=== PATIENT | female | born 1950 | race Hispanic/Latino ===

== ENCOUNTER 2020-02-22 21:02 | Emergency (ER) | payer MEDICARE ==
[~2020-02-22] VITALS: Ht 157.5 cm; Wt 49.9 kg
--- NOTE | 2020-02-22 21:52 | Emergency Department Note ---
History of Present Illnes History of Present Illness Chief Complaint: COVID PUI History of Present Illness This is a 69 year old female PRESENTS TO THE ER C/O MIDSTERNAL CHEST PRESSURE WITH SOB, COUGH, MUSCLE ACHES, FEVER/CHILLS, HEADACHE AND DIARRHEA ONSET X1 MONTH AGO; PT STATES "WHEN I LAY DOWN, I FEEL LIKE SOMETHING IS SITTING ON MY CHEST"; PT TESTED + FOR COVID-19 ON 01/23/20; PT PRESCRIBED Z-PACK TODAY BY PCP; SPO2 98% RA; SKIN WARM, DRY AND COLOR WNL FOR PT; RESP EVEN/UNLABORED; . Historian: Patient Arrival Mode: Car Onset (how long ago): day(s) (1) Location: chest Quality: pain with cough and inspiration Radiation: Reports non-radiation Severity: mild Onset quality: gradual Duration (how long): day(s) (1) Timing of current episode: constant Progression: unchanged Chronicity: new Context: Reports recent illness (pt has covid 19) Relieving factors: none Exacerbating factors: other (coughing, inspiration) Associated symptoms: Reports chest pain, Reports cough (dry), Reports fever/chills, Reports shortness of breath Treatments prior to arrival: other (on zpak started today by pcp) Past Medical/Family History Physician Review I have reviewed the patient's past medical and family history. Any updates have been documented here. Past Medical History Recent Fever: Yes (SUBJECTIVE FEVER) Clinical Suspicion of Infectio: No New/Unexplained Change in Ment: No Past Medical History: Diabetes, Hyperlipedemia Past Surgical History: Hysterectomy Other Surgery: BLADDER SLING Social History Smoking Cessation: Never Smoker Alcohol Use: None Any Illegal Drug Use: No Physically hurt or threatened: No Family History Family history of heart diseas: No Other family history htn,dm Other Any Pre-Existing Lines (PICC,: No Review of Systems Review of Systems Constitutional: Reports as per HPI EENTM: Reports no symptoms Cardiovascular: Reports as per HPI Respiratory: Reports as per HPI Gastrointestinal: Reports no symptoms Genitourinary: Reports no symptoms Musculoskeletal: Reports no symptoms Integumentary: Reports no symptoms Neurological: Reports no symptoms Psychological: Reports no symptoms Endocrine: Reports no symptoms Hematological/Lymphatic: Reports no symptoms Physical Exam Related Data Allergies: Coded Allergies: Sulfa (Sulfonamide Antibiotics) (Verified Allergy, Intermediate, 02/22/20) Triage Vital Signs Vital Signs Date Time Temp Pulse Resp B/P (MAP) Pulse Ox O2 Delivery O2 Flow Rate FiO2 02/22/20 21:05 98.2 104 20 146/79 99 Room Air Vital signs reviewed: Yes Physical Exam CONSTITUTIONAL Constitutional: Present well-developed, Present well-nourished HENT HENT: Present normocephalic, Present atraumatic, Present oropharynx clear/moist, Present nose normal HENT L/R: Present left ext ear normal, Present right ext ear normal EYES Eyes: Reports PERRL, Reports conjunctivae normal NECK Neck: Present ROM normal PULMONARY Pulmonary: Present effort normal, Present breath sounds normal, Present chest tenderness (to sternum with palpation) CARDIOVASCULAR Cardiovascular: Present regular rhythm, Present heart sounds normal, Present capillary refill normal, Present tachycardia (104) GASTROINTESTINAL Abdominal: Present soft, Present nontender, Present bowel sounds normal GENITOURINARY Genitourinary: Present exam deferred SKIN Skin: Present warm, Present dry MUSCULOSKELETAL Musculoskeletal: Present ROM normal NEUROLOGICAL Neurological: Present alert, Present oriented x 3, Present no gross motor or sensory deficits PSYCHOLOGICAL Psychological: Present mood/affect normal, Present judgement normal Results Laboratory Laboratory Laboratory Tests Test 02/22/20 21:56 White Blood Count 9.00 x10e3/uL (4.8-10.8) Red Blood Count 4.37 x10e6/uL (3.6-5.1) Hemoglobin 12.9 g/dL (12.0-16.0) Hematocrit 40.0 % (34.2-44.1) Mean Corpuscular Volume 91.5 fL (81-99) Mean Corpuscular Hemoglobin 29.5 pg (28-32) Mean Corpuscular Hemoglobin Concent 32.3 g/dL (31-35) Red Cell Distribution Width 13.7 % (11.7-14.4) Platelet Count 241 x10e3/uL (140-360) Neutrophils (%) (Auto) 57.3 % (38.7-80.0) Lymphocytes (%) (Auto) 27.1 % (18.0-39.1) Monocytes (%) (Auto) 9.6 % (4.4-11.3) Eosinophils (%) (Auto) 5.2 % (0.0-6.0) Basophils (%) (Auto) 0.4 % (0.0-1.0) Neutrophils # (Auto) 5.2 (2.1-6.9) Lymphocytes # (Auto) 2.4 (1.0-3.2) Monocytes # (Auto) 0.9 (0.2-0.8) Eosinophils # (Auto) 0.5 (0.0-0.4) Basophils # (Auto) 0.0 (0.0-0.1) Absolute Immature Granulocyte (auto 0.04 x10e3/uL (0-0.1) Sodium Level 137 mmol/L (136-145) Potassium Level 4.3 mmol/L (3.5-5.1) Chloride Level 100 mmol/L (98-107) Carbon Dioxide Level 27 mmol/L (22-29) Anion Gap 14.3 mmol/L (8-16) Blood Urea Nitrogen 10 mg/dL (7-26) Creatinine 0.62 mg/dL (0.57-1.11) Estimat Glomerular Filtration Rate > 60 ML/MIN (60-) BUN/Creatinine Ratio 16 (6-25) Glucose Level 161 mg/dL (74-118) Calcium Level 9.1 mg/dL (8.4-10.2) Creatine Kinase 28 IU/L (29-168) Creatine Kinase MB 0.70 ng/mL (0-5.0) Troponin I < 0.001 ng/mL (0-0.300) Lab results reviewed: Yes Imaging Imaging results reviewed: Yes Impressions Procedure: [id number] DX/CHEST SINGLE (PORTABLE) Exam Date: 02/22/20 Exam Time: 2241 REPORT STATUS: Signed Examination: Single AP view of the chest. COMPARISON: None. INDICATION: Shortness of breath, cough and fever IMPRESSION: 1. Lines and Tubes: None 2. Lungs are grossly clear. No consolidation or effusion. 3. Cardiomediastinal silhouette is normal. Pulmonary vasculature is normal. 4. No acute bony abnormalities. Signed by: Dr. Tristen Kramer M.D. on 02/22/2020 11:28 PM Procedures 12 Lead ECG Interpretation ECG Interpretation : ECG: ECG 1 Cheese Processor: Interpreted by ED physician Date: Feb 22, 2020 Time: 21:19 Rhythm: sinus rhythm Rate: normal BPM: 99 QRS axis: normal ST segments normal: Yes T waves normal: No T wave inversion: V1 Other findings: no other findings Clinical Impression: non-specific ECG Assessment & Plan Medical Decision Making MDM pt with covid 19 with chest pain associated with coughing and inspiration for 1 day cbc, bmp, ekg, cardiac enzymes, cxr ordered to eval for myocardial infarction, viral pneumonia, electrolyte abnormality Assessment & Plan Final Impression: (1) Chest wall pain (2) COVID-19 Depart Disposition: HOME, SELF-CARE Last Vital Signs Date Time Temp Pulse Resp B/P (MAP) Pulse Ox O2 Delivery O2 Flow Rate FiO2 02/22/20 21:05 98.2 104 20 146/79 99 Room Air SHELLEY APODACA MD Feb 22, 2020 21:52
[2020-02-22 22:07] LABS: BASOPHILS % 0.4 % (0.0-1.0); EOSINOPHILS # (AUTO) 0.5 (0.0-0.4); EOSINOPHILS % 5.2 % (0.0-6.0); HEMOGLOBIN 12.9 g/dL (12.0-16.0); LYMPHOCYTES # (AUTO) 2.4 (1.0-3.2); LYMPHOCYTES % 27.1 % (18.0-39.1); MEAN CORPUSCULAR HEMOGLOBIN 29.5 pg (28-32); MEAN CORPUSCULAR HGB CONC 32.3 g/dL (31-35); MEAN CORPUSCULAR VOLUME 91.5 fL (81-99); MONOCYTES # (AUTO) 0.9 (0.2-0.8); MONOCYTES % 9.6 % (4.4-11.3); NEUTROPHILS # (AUTO) 5.2 (2.1-6.9); NEUTROPHILS % 57.3 % (38.7-80.0); PLATELET COUNT 241 x10e3/uL (140-360); RED BLOOD COUNT 4.37 x10e6/uL (3.6-5.1); RED CELL DISTRIBUTION WIDTH 13.7 % (11.7-14.4)
[2020-02-22 22:23] LABS: ANION GAP 14.3 mmol/L (8-16); BLOOD UREA NITROGEN 10 mg/dL (7-26); BUN/CREATININE RATIO 16 (6-25); CALCIUM 9.1 mg/dL (8.4-10.2); CARBON DIOXIDE 27 mmol/L (22-29); CHLORIDE 100 mmol/L (98-107); CREATINE KINASE 28 IU/L (29-168); CREATININE, SERUM 0.62 mg/dL (0.57-1.11); EST GLOMERULAR FILTRATION RATE > 60 ML/MIN (60-); GLUCOSE 161 mg/dL (74-118); POTASSIUM 4.3 mmol/L (3.5-5.1); SODIUM 137 mmol/L (136-145)
--- NOTE | 2020-02-22 23:31 | Diagnostic Imaging Report ---
Examination: Single AP view of the chest. COMPARISON: None. INDICATION: Shortness of breath, cough and fever IMPRESSION: 1. Lines and Tubes: None 2. Lungs are grossly clear. No consolidation or effusion. 3. Cardiomediastinal silhouette is normal. Pulmonary vasculature is normal. 4. No acute bony abnormalities. Signed by: Dr. Tristen Kramer M.D. on 02/22/2020 11:28 PM
== END 2020-02-22 23:43 | disposition home or self-care (01) ==
LOC: ER 21:23
DX: U07.1 COVID-19 (principal); R07.89 Other chest pain; R06.02 Shortness of breath; R05 Cough; E11.65 Type 2 diabetes mellitus with hyperglycemia; E78.5 Hyperlipidemia, unspecified
CPT/HCPCS: 36415; 71045; 80048; 82550; 82553; 84484; 85025; 93005; 99283

== ENCOUNTER 2020-05-10 14:50 | Emergency (ER) | payer MEDICARE ==
[~2020-05-10] VITALS: Ht 157.5 cm; Wt 51.1 kg
[2020-05-10] MEDS ORDERED: IBUPROFEN 600 MG TAB PO ONE (15:15)
[2020-05-10] MEDS ORDERED: CEFTRIAXONE SOD 1 GM VIAL IM ONE (15:15)
[2020-05-10] MEDS ORDERED: ACETAMINOPHEN 325 MG TAB PO ONE (15:15)
[2020-05-10] MEDS ORDERED: ONDANSETRON HCL 4 MG ORAL DISINTEGRATING TAB PO ONE (15:15)
[2020-05-10] MEDS ORDERED: ZOFRAN4 MG SL (15:22)
[2020-05-10] MEDS ORDERED: IBUPROFEN IB200 MG PO (15:22)
[2020-05-10] MEDS ORDERED: CEFDINIR300 MG PO (15:22)
[2020-05-10] MEDS ORDERED: DIFLUCAN100 MG PO (15:22)
[2020-05-10] MEDS ORDERED: IBUPROFEN 600 MG TAB ONE (15:23)
== END 2020-05-10 15:50 | disposition home or self-care (01) ==
LOC: FSED 15:00
DX: N39.0 Urinary tract infection, site not specified (principal); R30.0 Dysuria; E11.9 Type 2 diabetes mellitus without complications; E78.5 Hyperlipidemia, unspecified; F17.210 Nicotine dependence, cigarettes, uncomplicated
CPT/HCPCS: 81003; 99283; J0696; Q0162

== ENCOUNTER 2020-07-18 09:15 | Emergency (ER) | payer MEDICARE ==
[~2020-07-18] VITALS: Ht 157.5 cm; Wt 52.3 kg
[~2020-07-18 09:15] MED LIST: CEFDINIR300 MG PO; DIFLUCAN100 MG PO; IBUPROFEN IB200 MG PO; ZOFRAN4 MG SL
[2020-07-18] MEDS ORDERED: KETOROLAC TROMETHAMINE 60 MG/2 ML VIAL IM ONE (10:00)
[2020-07-18] MEDS ORDERED: CYCLOBENZAPRINE10 MG PO (10:22)
[2020-07-18] MEDS ORDERED: IBUPROFEN400 MG PO (10:24)
== END 2020-07-18 10:43 | disposition home or self-care (01) ==
LOC: FSED 09:57
DX: S29.012A Strain of muscle and tendon of back wall of thorax, initial encounter (principal); M25.551 Pain in right hip; X50.1XXA Overexertion from prolonged static or awkward postures, initial encounter; Y99.0 Civilian activity done for income or pay; E11.9 Type 2 diabetes mellitus without complications
CPT/HCPCS: 99282; J1885

== ENCOUNTER 2020-10-02 16:41 | Emergency (ER) | payer MEDICARE ==
[~2020-10-02] VITALS: Ht 157.5 cm; Wt 52.7 kg
[~2020-10-02 16:41] MED LIST changes: +CYCLOBENZAPRINE10 MG PO; +IBUPROFEN400 MG PO
[2020-10-02] MEDS ORDERED: CEFTRIAXONE SOD 1 GM VIAL IM ONE (17:15)
[2020-10-02] MEDS ORDERED: KETOROLAC TROMETHAMINE 60 MG/2 ML VIAL IM ONE (17:15)
[2020-10-02] MEDS ORDERED: KETOROLAC TROME10 MG PO (17:21)
[2020-10-02] MEDS ORDERED: CIPRO500 MG PO (17:21)
[2020-10-02] MEDS ORDERED: KETOROLAC TROMETHAMINE 60 MG/2 ML VIAL ONE (17:22)
[2020-10-02] MEDS ORDERED: CEFTRIAXONE SOD 1 GM VIAL ONE (17:23)
[2020-10-02] MEDS ORDERED: LIDOCAINE HCL 1% LOCAL INJ 20 ML VIAL ONE (17:23)
[2020-10-02] MEDS ORDERED: PYRIDIUM200 MG PO (17:32)
[2020-10-02 17:58] VITALS: BP 113/78
== END 2020-10-02 18:01 | disposition home or self-care (01) ==
LOC: FSED 16:50
DX: R30.0 Dysuria (principal); M54.5 Low back pain; N12 Tubulo-interstitial nephritis, not specified as acute or chronic; E11.9 Type 2 diabetes mellitus without complications
CPT/HCPCS: 81003; 87086; 87186; 96372; 99283; J0696; J1885; J2001

== ENCOUNTER 2020-10-22 17:40 | Emergency (ER) | payer MEDICARE ==
[~2020-10-22] VITALS: Ht 157.5 cm; Wt 52.6 kg
[~2020-10-22 17:40] MED LIST changes: +CIPRO500 MG PO; +KETOROLAC TROME10 MG PO; +PYRIDIUM200 MG PO
[2020-10-22] MEDS ORDERED: SODIUM CHLORIDE 0.9% 1000ML 1,000 ML IV STA (17:57)
[2020-10-22] MEDS ORDERED: ONDANSETRON HCL INJ 2MG/ML 2ML 2 MG/ML VIAL IV ONE (18:00)
[2020-10-22] MEDS ORDERED: KETOROLAC TROMETHAMINE 30 MG/ML VIAL IV ONE (18:00)
[2020-10-22] MEDS ORDERED: CEFTRIAXONE SOD 1 GM VIAL IV ONE ×2 (18:00→18:30)
[2020-10-22] MEDS ORDERED: CEFDINIR300 MG PO (18:10)
[2020-10-22] MEDS ORDERED: ULTRACET TABLE1 EACH PO (18:10)
[2020-10-22] MEDS ORDERED: ZOFRAN4 MG PO (18:10)
[2020-10-22] MEDS ORDERED: SODIUM CHLORIDE 0.9% 1000ML 1,000 ML ONE (18:16)
[2020-10-22] MEDS ORDERED: CEFTRIAXONE SOD 1 GM VIAL ONE (18:17)
[2020-10-22] MEDS ORDERED: CEFTRIAXONE SOD 1 GM in SODIUM CHLORIDE 0.9% 50ML 50 ML IV ONE (18:30)
== END 2020-10-22 19:15 | disposition home or self-care (01) ==
LOC: FSED 17:50
DX: N30.91 Cystitis, unspecified with hematuria (principal); E11.65 Type 2 diabetes mellitus with hyperglycemia; R30.0 Dysuria; E86.0 Dehydration
CPT/HCPCS: 80048; 81003; 85025; 87086; 99283; J0696; J1885; J2405; J7030

== ENCOUNTER → 2021-01-29 | Outpatient (CLI) | payer OTHER ==
[~2021-01-29] MED LIST changes: +ULTRACET TABLE1 EACH PO; +ZOFRAN4 MG PO
== END ==
LOC: CT 15:09
PROVIDERS: ATTEND Internal Medicine
DX: N20.0 Calculus of kidney (principal)
CPT/HCPCS: 74176

== ENCOUNTER → 2021-04-17 | Day surgery (SDC) | payer MEDICARE, OTHER ==
[2021-04-16 08:02] LABS: BASOPHILS % 0.3 % (0.0-1.0); EOSINOPHILS # (AUTO) 0.3 (0.0-0.4); EOSINOPHILS % 3.3 % (0.0-6.0); HEMATOCRIT 40.2 % (34.2-44.1); HEMOGLOBIN 12.9 g/dL (12.0-16.0); LYMPHOCYTES # (AUTO) 2.2 (1.0-3.2); LYMPHOCYTES % 28.4 % (18.0-39.1); MEAN CORPUSCULAR HEMOGLOBIN 31.1 pg (28-32); MEAN CORPUSCULAR HGB CONC 32.1 g/dL (31-35); MEAN CORPUSCULAR VOLUME 96.9 fL (81-99); MONOCYTES # (AUTO) 0.6 (0.2-0.8); MONOCYTES % 7.5 % (4.4-11.3); NEUTROPHILS # (AUTO) 4.6 (2.1-6.9); NEUTROPHILS % 60.1 % (38.7-80.0); PLATELET COUNT 242 x10e3/uL (140-360); RED BLOOD COUNT 4.15 x10e6/uL (3.6-5.1)
[2021-04-16 08:18] LABS: ANION GAP 17.2 mmol/L (8-16); CALCIUM 9.2 mg/dL (8.4-10.2); CREATININE, SERUM 0.64 mg/dL (0.57-1.11); POTASSIUM 4.2 mmol/L (3.5-5.1)
[~2021-04-17] MED LIST changes: +ALENDRONATE SOD70 MG PO; +CEFTRIAXONE 1 GM VIAL ONE; +IOPAMIDOL 300MG/ML 50ML INFUS..BTL IV ONE; +LEVOFLOXACIN250 MG PO; +LIDOCAINE HCL 2% LOCAL INJ 5 ML SDV VIAL INJ ONE; +LIPITOR10 MG PO; +METFORMIN HCL500 MG PO; +METOCLOPRAMIDE HCL 10 MG/2ML VIAL ONE; +ONDANSETRON HCL INJ 2MG/ML 2ML 2 MG/ML VIAL ONE; +POVIDONE IODINE 0.05% 0.05 % ML PO ONE; +PROPOFOL IV EMULSION 10 MG/ML 20 ML VIAL ONE; +SODIUM CHLORIDE 0.9% 50ML 50 ML ONE; +ZESTRIL10 MG PO
[2021-04-17 09:13] VITALS: BP 133/64
== END | disposition home or self-care (01) ==
LOC: OR 05:54
PROVIDERS: ATTEND Urology
DX: N39.0 Urinary tract infection, site not specified (principal); N81.10 Cystocele, unspecified; N95.2 Postmenopausal atrophic vaginitis; I10 Essential (primary) hypertension; E11.9 Type 2 diabetes mellitus without complications; Z88.2 Allergy status to sulfonamides; Z01.810 Encounter for preprocedural cardiovascular examination; Z01.812 Encounter for preprocedural laboratory examination; Z01.818 Encounter for other preprocedural examination; Z20.822 Contact with and (suspected) exposure to COVID-19; Z79.84 Long term (current) use of oral hypoglycemic drugs
CPT/HCPCS: 36415; 71046; 74420; 80048; 82948; 85025; 93005; C1758; J0696; J2001; J2405; J2765; U0002

== ENCOUNTER 2021-06-12 15:11 | Emergency (ER) | payer MEDICARE, OTHER ==
[~2021-06-12] VITALS: Ht 157.5 cm; Wt 52.2 kg
[~2021-06-12 15:11] MED LIST changes: -CEFTRIAXONE 1 GM VIAL ONE; -IOPAMIDOL 300MG/ML 50ML INFUS..BTL IV ONE; -LIDOCAINE HCL 2% LOCAL INJ 5 ML SDV VIAL INJ ONE; -METOCLOPRAMIDE HCL 10 MG/2ML VIAL ONE; -ONDANSETRON HCL INJ 2MG/ML 2ML 2 MG/ML VIAL ONE; -POVIDONE IODINE 0.05% 0.05 % ML PO ONE; -PROPOFOL IV EMULSION 10 MG/ML 20 ML VIAL ONE; -SODIUM CHLORIDE 0.9% 50ML 50 ML ONE
[2021-06-12] MEDS ORDERED: ULTRAM 50MG50 MG PO (15:44)
[2021-06-12] MEDS ORDERED: FAMOTIDINE20 MG PO (15:44)
[2021-06-12] MEDS ORDERED: CEFDINIR300 MG PO (15:44)
[2021-06-12] MEDS ORDERED: ONDANSETRON ODT4 MG PO (15:44)
[2021-06-12] MEDS ORDERED: ONDANSETRON HCL 4 MG ORAL DISINTEGRATING TAB PO ONE (15:45)
[2021-06-12] MEDS ORDERED: CEFTRIAXONE 1 GM VIAL IM ONE (15:45)
[2021-06-12] MEDS ORDERED: PREDNISONE 20 MG TAB PO ONE (15:45)
[2021-06-12] MEDS ORDERED: ACETAMINOPHEN 325 MG TAB ONE (15:51)
== END 2021-06-12 16:12 | disposition home or self-care (01) ==
LOC: FSED 15:36
DX: R11.0 Nausea (principal); K52.9 Noninfective gastroenteritis and colitis, unspecified; B34.9 Viral infection, unspecified; E11.65 Type 2 diabetes mellitus with hyperglycemia; R10.30 Lower abdominal pain, unspecified; R05.9 Cough, unspecified
CPT/HCPCS: 36415; 82948; 99283; J0696; J7512; Q0162

== ENCOUNTER 2021-07-30 18:02 | Emergency (ER) | payer MEDICARE, OTHER ==
[~2021-07-30] VITALS: Ht 157.5 cm; Wt 55.0 kg
[~2021-07-30 18:02] MED LIST changes: +FAMOTIDINE20 MG PO; +ONDANSETRON ODT4 MG PO; +ULTRAM 50MG50 MG PO
[2021-07-30] MEDS ORDERED: CEFDINIR300 MG PO (18:36)
[2021-07-30] MEDS ORDERED: PYRIDIUM100 MG PO (18:36)
[2021-07-30] MEDS ORDERED: CEFTRIAXONE 1 GM VIAL IM ONE (18:45)
[2021-07-30] MEDS ORDERED: CEFTRIAXONE 1 GM VIAL ONE (18:52)
== END 2021-07-30 18:50 | disposition home or self-care (01) ==
LOC: FSED 18:23
DX: N30.00 Acute cystitis without hematuria (principal); I10 Essential (primary) hypertension; E11.9 Type 2 diabetes mellitus without complications; E78.5 Hyperlipidemia, unspecified; Z79.84 Long term (current) use of oral hypoglycemic drugs
CPT/HCPCS: 81003; 96372; 99283; J0696

== ENCOUNTER 2021-09-08 16:52 | Emergency (ER) | payer MEDICARE, OTHER ==
[~2021-09-08] VITALS: Ht 157.5 cm; Wt 52.6 kg
[~2021-09-08 16:52] MED LIST changes: +PYRIDIUM100 MG PO
[2021-09-08] MEDS ORDERED: CEFUROXIME250 MG PO (18:09)
[2021-09-08] MEDS ORDERED: KETOROLAC TROMETHAMINE 60 MG/2 ML VIAL IM ONE (18:15)
== END 2021-09-08 18:35 | disposition home or self-care (01) ==
LOC: FSED 18:03
DX: R33.9 Retention of urine, unspecified (principal); N39.0 Urinary tract infection, site not specified; R30.0 Dysuria; I10 Essential (primary) hypertension; E11.9 Type 2 diabetes mellitus without complications; E78.5 Hyperlipidemia, unspecified
CPT/HCPCS: 81003; 96372; 99282; J1885

== ENCOUNTER 2021-09-29 08:35 | Inpatient (IN) | payer MEDICARE, OTHER ==
[~2021-09-29] VITALS: Ht 157.5 cm; Wt 55.0 kg
[~2021-09-29 08:35] MED LIST changes: +CEFUROXIME250 MG PO
[2021-09-29] MEDS ORDERED: SODIUM CHLORIDE 0.9% 1000ML 1,000 ML IV SCH ×2 (09:15→12:45)
[2021-09-29] MEDS ORDERED: MEROPENEM 1 GM in SODIUM CHLORIDE 0.9% 100 ML IV ONE (09:30)
[2021-09-29 09:33] LABS: BASOPHILS % 0.2 % (0.0-1.0); EOSINOPHILS # (AUTO) 0.2 (0.0-0.4); EOSINOPHILS % 1.7 % (0.0-6.0); HEMATOCRIT 39.9 % (34.2-44.1); HEMOGLOBIN 13.1 g/dL (12.0-16.0); LYMPHOCYTES # (AUTO) 2.8 (1.0-3.2); LYMPHOCYTES % 22.9 % (18.0-39.1); MEAN CORPUSCULAR HEMOGLOBIN 30.3 pg (28-32); MEAN CORPUSCULAR HGB CONC 32.8 g/dL (31-35); MEAN CORPUSCULAR VOLUME 92.1 fL (81-99); MONOCYTES # (AUTO) 0.9 (0.2-0.8); MONOCYTES % 7.5 % (4.4-11.3); NEUTROPHILS # (AUTO) 8.1 (2.1-6.9); NEUTROPHILS % 67.1 % (38.7-80.0); PLATELET COUNT 310 x10e3/uL (140-360); RED BLOOD COUNT 4.33 x10e6/uL (3.6-5.1); RED CELL DISTRIBUTION WIDTH 12.8 % (11.7-14.4)
[2021-09-29] MEDS ORDERED: ONDANSETRON HCL INJ 2MG/ML 2ML 2 MG/ML VIAL IV NR (09:45)
[2021-09-29] MEDS ORDERED: Morphine 4mg Syringe 4 MG/ML INJ IV ONE (09:45)
[2021-09-29 09:50] LABS: INR 0.98; PROTHROMBIN TIME 13.7 seconds (11.9-14.5)
[2021-09-29 09:51] LABS: ALBUMIN/GLOBULIN RATIO 1.1 (0.8-2.0); ANION GAP 14.2 mmol/L (8-16); CALCIUM 9.4 mg/dL (8.4-10.2); CREATININE, SERUM 0.67 mg/dL (0.57-1.11); PARTIAL THROMBOPLASTIN TIME 38.4 seconds (23.8-35.5); POTASSIUM 4.2 mmol/L (3.5-5.1)
[2021-09-29 10:54] LABS: CLARITY,URINE CLOUDY (CLEAR); COLOR,URINE YELLOW (YELLOW)
[2021-09-29 10:55] LABS: KETONES,URINE NEGATIVE (NEGATIVE); LEUKOCYTE ESTERASE ,URINE LARGE (NEGATIVE); NITRITE,URINE POSITIVE (NEGATIVE); PROTEIN,URINE DIPSTICK TRACE (NEGATIVE); URINE UROBILINOGEN 0.2 mg/dL (0.2 - 1)
[2021-09-29 11:17] LABS: WBC,URINE (MAN) >50 /HPF (0-5)
[2021-09-29 11:18] LABS: BACTERIA,URINE MANY /HPF
[2021-09-29 11:22] LABS: EPITHELIAL CELLS,URINE MODERATE /LPF
[2021-09-29] MEDS: METRONIDAZOLE 500MG/NS 100ML IV SCH ×3 (12:45→21:37)
[2021-09-29] MEDS ORDERED: Morphine 4mg Syringe 4 MG/ML INJ IV PRN (12:45)
[2021-09-29] MEDS ORDERED: MEROPENEM 1 GM in SODIUM CHLORIDE 0.9% 100 ML IV SCH (14:00)
[2021-09-29 14:25] VITALS: BP 122/75
[2021-09-29] MEDS: MEROPENEM 1 GM in SODIUM CHLORIDE 0.9% 100 ML IV SCH (17:08)
[2021-09-29] MEDS ORDERED: FLONASE ALLERG9.9 ML INH (17:58)
[2021-09-29] MEDS ORDERED: VITAMIN D350 MCG PO (17:58)
[2021-09-29] MEDS: HYDROMORPHONE 1MG/1ML INJ IV PRN (18:38)
[2021-09-29 20:36] VITALS: BP 142/65
[2021-09-29 20:37] VITALS: BP 142/65
[2021-09-29] MEDS: ATORVASTATIN 40 MG TAB PO SCH (21:00)
[2021-09-29] MEDS: LISINOPRIL 2.5 MG TAB PO SCH (21:00)
[2021-09-30] VITALS (8 sets, daily range): BP systolic 94–150; BP diastolic 60–68
[2021-09-30] MEDS: MEROPENEM 1 GM in SODIUM CHLORIDE 0.9% 100 ML IV SCH ×3 (02:00→17:24)
[2021-09-30 05:30] LABS: BASOPHILS % 0.3 % (0.0-1.0); EOSINOPHILS # (AUTO) 0.3 (0.0-0.4); EOSINOPHILS % 4.7 % (0.0-6.0); HEMOGLOBIN 10.4 g/dL (12.0-16.0); LYMPHOCYTES # (AUTO) 1.7 (1.0-3.2); LYMPHOCYTES % 28.4 % (18.0-39.1); MEAN CORPUSCULAR HEMOGLOBIN 30.6 pg (28-32); MEAN CORPUSCULAR HGB CONC 31.5 g/dL (31-35); MEAN CORPUSCULAR VOLUME 97.1 fL (81-99); MONOCYTES # (AUTO) 0.7 (0.2-0.8); MONOCYTES % 10.6 % (4.4-11.3); NEUTROPHILS # (AUTO) 3.4 (2.1-6.9); NEUTROPHILS % 55.7 % (38.7-80.0); PLATELET COUNT 220 x10e3/uL (140-360); RED CELL DISTRIBUTION WIDTH 13.2 % (11.7-14.4)
[2021-09-30] MEDS: METRONIDAZOLE 500MG/NS 100ML IV SCH ×3 (06:00→22:00)
[2021-09-30] MEDS: ONDANSETRON HCL INJ 2MG/ML 2ML 2 MG/ML VIAL IV PRN ×2 (07:15→14:45)
[2021-09-30] MEDS: HYDROMORPHONE 1MG/1ML INJ IV PRN ×2 (07:15→14:45)
[2021-09-30] MEDS: METFORMIN HCL 500 MG TAB PO SCH ×2 (09:40→17:24)
[2021-09-30 10:23] LABS: ALBUMIN 3.3 g/dL (3.5-5.0); ALBUMIN/GLOBULIN RATIO 1.1 (0.8-2.0); ANION GAP 11.7 mmol/L (8-16); CALCIUM 7.9 mg/dL (8.4-10.2); CREATININE, SERUM 0.7 mg/dL (0.57-1.11); POTASSIUM 3.7 mmol/L (3.5-5.1)
[2021-09-30] MEDS ORDERED: DEXTROSE 50% SYRINGE 50 ML IV PRN (14:00)
[2021-09-30] MEDS: INSULIN LISPRO 100 UNIT/1 ML 3ML VIAL SQ SCH ×2 (16:30→21:00)
[2021-09-30] MEDS: ATORVASTATIN 40 MG TAB PO SCH (20:49)
[2021-09-30] MEDS: LISINOPRIL 2.5 MG TAB PO SCH (21:00)
[2021-10-01] VITALS (7 sets, daily range): BP systolic 91–123; BP diastolic 52–81
[2021-10-01] MEDS: MEROPENEM 1 GM in SODIUM CHLORIDE 0.9% 100 ML IV SCH ×3 (02:00→17:13)
[2021-10-01] MEDS: METRONIDAZOLE 500MG/NS 100ML IV SCH ×3 (06:00→22:08)
[2021-10-01 06:11] LABS: BASOPHILS % 0.3 % (0.0-1.0); EOSINOPHILS # (AUTO) 0.4 (0.0-0.4); EOSINOPHILS % 3.8 % (0.0-6.0); HEMATOCRIT 33.6 % (34.2-44.1); HEMOGLOBIN 10.6 g/dL (12.0-16.0); LYMPHOCYTES # (AUTO) 2.2 (1.0-3.2); MEAN CORPUSCULAR HEMOGLOBIN 30.5 pg (28-32); MEAN CORPUSCULAR HGB CONC 31.5 g/dL (31-35); MEAN CORPUSCULAR VOLUME 96.6 fL (81-99); MONOCYTES # (AUTO) 0.9 (0.2-0.8); MONOCYTES % 9.5 % (4.4-11.3); NEUTROPHILS # (AUTO) 5.7 (2.1-6.9); NEUTROPHILS % 62.1 % (38.7-80.0); PLATELET COUNT 214 x10e3/uL (140-360); RED BLOOD COUNT 3.48 x10e6/uL (3.6-5.1)
[2021-10-01 06:40] LABS: ALBUMIN 3.2 g/dL (3.5-5.0); ALBUMIN/GLOBULIN RATIO 1.1 (0.8-2.0); ANION GAP 11.9 mmol/L (8-16); CALCIUM 8.3 mg/dL (8.4-10.2); CREATININE, SERUM 0.6 mg/dL (0.57-1.11); POTASSIUM 3.9 mmol/L (3.5-5.1)
[2021-10-01] MEDS: INSULIN LISPRO 100 UNIT/1 ML 3ML VIAL SQ SCH ×4 (07:30→21:21)
[2021-10-01] MEDS: METFORMIN HCL 500 MG TAB PO SCH ×2 (09:13→16:10)
[2021-10-01] MEDS: HYDROMORPHONE 1MG/1ML INJ IV PRN ×3 (12:19→22:50)
[2021-10-01] MEDS: LISINOPRIL 2.5 MG TAB PO SCH (21:24)
[2021-10-01] MEDS: ATORVASTATIN 40 MG TAB PO SCH (21:24)
[2021-10-02] VITALS: BP 115/85
[2021-10-02] MEDS: MEROPENEM 1 GM in SODIUM CHLORIDE 0.9% 100 ML IV SCH ×3 (02:29→17:22)
[2021-10-02 04:00] VITALS: BP 121/63
[2021-10-02] MEDS: HYDROMORPHONE 1MG/1ML INJ IV PRN (05:35)
[2021-10-02 05:59] LABS: BASOPHILS % 0.2 % (0.0-1.0); EOSINOPHILS # (AUTO) 0.3 (0.0-0.4); HEMATOCRIT 36.2 % (34.2-44.1); HEMOGLOBIN 11.6 g/dL (12.0-16.0); LYMPHOCYTES # (AUTO) 2.3 (1.0-3.2); LYMPHOCYTES % 21.7 % (18.0-39.1); MEAN CORPUSCULAR HEMOGLOBIN 30.1 pg (28-32); MEAN CORPUSCULAR VOLUME 93.8 fL (81-99); MONOCYTES # (AUTO) 0.9 (0.2-0.8); MONOCYTES % 9.1 % (4.4-11.3); NEUTROPHILS # (AUTO) 6.8 (2.1-6.9); NEUTROPHILS % 65.6 % (38.7-80.0); PLATELET COUNT 240 x10e3/uL (140-360); RED BLOOD COUNT 3.86 x10e6/uL (3.6-5.1); RED CELL DISTRIBUTION WIDTH 12.6 % (11.7-14.4)
[2021-10-02] MEDS: METRONIDAZOLE 500MG/NS 100ML IV SCH (06:12)
[2021-10-02 06:26] LABS: ALBUMIN 3.6 g/dL (3.5-5.0); ALBUMIN/GLOBULIN RATIO 1.1 (0.8-2.0); ANION GAP 12.8 mmol/L (8-16); CALCIUM 8.6 mg/dL (8.4-10.2); CREATININE, SERUM 0.58 mg/dL (0.57-1.11); POTASSIUM 3.8 mmol/L (3.5-5.1)
[2021-10-02] MEDS: INSULIN LISPRO 100 UNIT/1 ML 3ML VIAL SQ SCH ×3 (07:30→16:45)
[2021-10-02 08:00] VITALS: BP 139/70
[2021-10-02] MEDS ORDERED: ONDANSETRON HCL 4 MG ORAL DISINTEGRATING TAB PO PRN (08:00)
[2021-10-02] MEDS: METFORMIN HCL 500 MG TAB PO SCH ×2 (08:23→16:43)
[2021-10-02 08:52] VITALS: BP 139/70
[2021-10-02 12:52] VITALS: BP 129/74
[2021-10-02] MEDS ORDERED: METRONIDAZOLE 500 MG TAB PO SCH (14:00)
[2021-10-02 16:46] VITALS: BP 116/59
== END 2021-10-02 18:36 | disposition home or self-care (01) | DRG 690 ==
LOC: ER 08:40 → ERHOLD 12:53 → MED/SURG 14:25 → MED/SURG2 10-01 11:40
PROVIDERS: ADMIT Internal Medicine; ATTEND Internal Medicine
PROC: 02HV33Z Insertion of Infusion Device into Superior Vena Cava, Percutaneous Approach (ICD-10-PCS; principal; 2021-09-29)
DX: N39.0 Urinary tract infection, site not specified (principal); K57.32 Diverticulitis of large intestine without perforation or abscess without bleeding; Z16.12 Extended spectrum beta lactamase (ESBL) resistance; B96.20 Unspecified Escherichia coli [E. coli] as the cause of diseases classified elsewhere; Z20.822 Contact with and (suspected) exposure to COVID-19; G47.00 Insomnia, unspecified; M81.0 Age-related osteoporosis without current pathological fracture; I13.10 Hypertensive heart and chronic kidney disease without heart failure, with stage 1 through stage 4 chronic kidney disease, or unspecified chronic kidney disease; E11.22 Type 2 diabetes mellitus with diabetic chronic kidney disease; N18.1 Chronic kidney disease, stage 1; Z79.899 Other long term (current) drug therapy; Z79.84 Long term (current) use of oral hypoglycemic drugs; E11.51 Type 2 diabetes mellitus with diabetic peripheral angiopathy without gangrene
CPT/HCPCS: 36415; 36569; 71045; 74176; 80053; 81001; 82948; 85025; 85610; 85730; 87086; 87186; 94799; 99285; J1170; J2185; J2270; J2405; J7030; J7050; U0002

== ENCOUNTER 2021-12-09 09:26 | Inpatient (IN) | payer MEDICARE, OTHER ==
[2021-12-07 11:21] LABS: BASOPHILS % 0.2 % (0.0-1.0); EOSINOPHILS # (AUTO) 0.1 (0.0-0.4); HEMATOCRIT 40.5 % (34.2-44.1); HEMOGLOBIN 13.1 g/dL (12.0-16.0); LYMPHOCYTES # (AUTO) 2.2 (1.0-3.2); LYMPHOCYTES % 26.3 % (18.0-39.1); MEAN CORPUSCULAR HEMOGLOBIN 31.1 pg (28-32); MEAN CORPUSCULAR HGB CONC 32.3 g/dL (31-35); MEAN CORPUSCULAR VOLUME 96.2 fL (81-99); MONOCYTES # (AUTO) 0.6 (0.2-0.8); MONOCYTES % 6.8 % (4.4-11.3); NEUTROPHILS # (AUTO) 5.4 (2.1-6.9); NEUTROPHILS % 65.5 % (38.7-80.0); PLATELET COUNT 168 x10e3/uL (140-360); RED BLOOD COUNT 4.21 x10e6/uL (3.6-5.1); RED CELL DISTRIBUTION WIDTH 13.2 % (11.7-14.4)
[2021-12-07 11:45] LABS: ALBUMIN 4.2 g/dL (3.5-5.0); ALBUMIN/GLOBULIN RATIO 1.1 (0.8-2.0); ANION GAP 15.7 mmol/L (8-16); CALCIUM 9.3 mg/dL (8.4-10.2); CREATININE, SERUM 0.63 mg/dL (0.57-1.11); POTASSIUM 4.7 mmol/L (3.5-5.1)
[2021-12-09] VITALS (11 sets, daily range): BP systolic 91–158; BP diastolic 51–74
[~2021-12-09] VITALS: Ht 157.5 cm; Wt 49.9 kg
[~2021-12-09 09:26] MED LIST changes: +FLONASE ALLERG9.9 ML INH; +VITAMIN D350 MCG PO
[2021-12-09] MEDS ORDERED: SUGAMMADEX SODIUM 200 MG/2 ML VIAL IV ONE (11:36)
[2021-12-09] MEDS ORDERED: MIDAZOLAM HCL 2 MG/2 ML VIAL ONE ×2 (12:35→12:38)
[2021-12-09] MEDS ORDERED: FENTANYL CITRATE/PF 100MCG/2 ML INJ ONE ×3 (12:35→14:57)
[2021-12-09] MEDS ORDERED: ACETAMINOPHEN 1000 MG/100 ML IV PRN (14:30)
[2021-12-09] MEDS ORDERED: ONDANSETRON HCL INJ 2MG/ML 2ML 2 MG/ML VIAL IV PRN (14:30)
[2021-12-09] MEDS ORDERED: Morphine 4mg Syringe 4 MG/ML INJ ONE (15:22)
[2021-12-09] MEDS: SODIUM CHLORIDE 0.9% 250ML IRRIG IR SCH ×3 (16:17→22:00)
[2021-12-09] MEDS: SODIUM CHLORIDE 0.9% 1000ML 1,000 ML IV SCH (16:21)
[2021-12-09] MEDS ORDERED: GLYCOPYRROLATE INJ 0.2 MG/ML VIAL ONE (16:22)
[2021-12-09] MEDS ORDERED: SEVOFLURANE INHAL SOLN 250 ML PEN BTL ONE (16:22)
[2021-12-09] MEDS ORDERED: ONDANSETRON HCL INJ 2MG/ML 2ML 2 MG/ML VIAL ONE (16:22)
[2021-12-09] MEDS ORDERED: LIDOCAINE HCL 2% JELLY 5 ML TUBE ONE (16:22)
[2021-12-09] MEDS ORDERED: POVIDONE IODINE 0.05% 0.05 % ML PO ONE (16:22)
[2021-12-09] MEDS ORDERED: ROCURONIUM BROMIDE 10 MG/ML 5ML VIAL IV ONE (16:22)
[2021-12-09] MEDS ORDERED: PROPOFOL IV EMULSION 10 MG/ML 20 ML VIAL ONE (16:22)
[2021-12-09] MEDS ORDERED: LIDOCAINE HCL 2% LOCAL INJ 5 ML SDV VIAL INJ ONE (16:22)
[2021-12-09] MEDS ORDERED: DEXTROSE 50% SYRINGE 50 ML IV PRN (17:45)
[2021-12-09] MEDS: HYDROMORPHONE 1MG/1ML INJ IV PRN ×2 (18:15→21:39)
[2021-12-09] MEDS: INSULIN LISPRO 100 UNIT/1 ML 3ML VIAL SQ SCH (21:00)
[2021-12-10] VITALS (14 sets, daily range): BP systolic 97–146; BP diastolic 51–80
[2021-12-10] MEDS: HYDROMORPHONE 1MG/1ML INJ IV PRN ×4 (00:45→11:56)
[2021-12-10] MEDS: SODIUM CHLORIDE 0.9% 1000ML 1,000 ML IV SCH ×3 (01:47→22:30)
[2021-12-10] MEDS: SODIUM CHLORIDE 0.9% 250ML IRRIG IR SCH ×6 (01:47→22:30)
[2021-12-10 04:54] LABS: BASOPHILS % 0.2 % (0.0-1.0); EOSINOPHILS # (AUTO) 0.1 (0.0-0.4); EOSINOPHILS % 0.4 % (0.0-6.0); HEMATOCRIT 37.8 % (34.2-44.1); HEMOGLOBIN 12.2 g/dL (12.0-16.0); LYMPHOCYTES # (AUTO) 3.4 (1.0-3.2); LYMPHOCYTES % 27.4 % (18.0-39.1); MEAN CORPUSCULAR HEMOGLOBIN 30.8 pg (28-32); MEAN CORPUSCULAR HGB CONC 32.3 g/dL (31-35); MEAN CORPUSCULAR VOLUME 95.5 fL (81-99); MONOCYTES # (AUTO) 1.1 (0.2-0.8); NEUTROPHILS # (AUTO) 7.8 (2.1-6.9); NEUTROPHILS % 62.8 % (38.7-80.0); PLATELET COUNT 330 x10e3/uL (140-360); RED BLOOD COUNT 3.96 x10e6/uL (3.6-5.1); RED CELL DISTRIBUTION WIDTH 13.4 % (11.7-14.4)
[2021-12-10 05:23] LABS: ALANINE AMINOTRANSFERASE 17 IU/L (0-55); ALBUMIN 3.5 g/dL (3.5-5.0); ALKALINE PHOSPHATASE 63 IU/L (40-150); ANION GAP 13.9 mmol/L (8-16); BLOOD UREA NITROGEN < 5 mg/dL (7-26); CALCIUM 7.5 mg/dL (8.4-10.2); CARBON DIOXIDE 22 mmol/L (22-29); CHLORIDE 107 mmol/L (98-107); CREATININE, SERUM 0.54 mg/dL (0.57-1.11); EST GLOMERULAR FILTRATION RATE 111 ML/MIN (60-); GLUCOSE 100 mg/dL (74-118); POTASSIUM 3.9 mmol/L (3.5-5.1); SODIUM 139 mmol/L (136-145)
[2021-12-10 05:24] LABS: BUN/CREATININE RATIO 9 (6-25)
[2021-12-10] MEDS: INSULIN LISPRO 100 UNIT/1 ML 3ML VIAL SQ SCH ×4 (07:01→21:00)
[2021-12-10] MEDS: LORAZEPAM INJ 2 MG/ML VIAL IV PRN ×2 (14:05→21:57)
[2021-12-11] VITALS (7 sets, daily range): BP systolic 118–155; BP diastolic 65–78
[2021-12-11] MEDS: SODIUM CHLORIDE 0.9% 250ML IRRIG IR SCH ×6 (01:53→22:00)
[2021-12-11 06:12] LABS: BASOPHILS % 0.2 % (0.0-1.0); EOSINOPHILS % 0.2 % (0.0-6.0); HEMATOCRIT 40.4 % (34.2-44.1); HEMOGLOBIN 12.4 g/dL (12.0-16.0); LYMPHOCYTES # (AUTO) 1.7 (1.0-3.2); LYMPHOCYTES % 14.5 % (18.0-39.1); MEAN CORPUSCULAR HEMOGLOBIN 31.2 pg (28-32); MEAN CORPUSCULAR HGB CONC 30.7 g/dL (31-35); MEAN CORPUSCULAR VOLUME 101.8 fL (81-99); MONOCYTES # (AUTO) 1.1 (0.2-0.8); MONOCYTES % 9.2 % (4.4-11.3); NEUTROPHILS # (AUTO) 8.9 (2.1-6.9); NEUTROPHILS % 75.5 % (38.7-80.0); PLATELET COUNT 187 x10e3/uL (140-360); RED BLOOD COUNT 3.97 x10e6/uL (3.6-5.1); RED CELL DISTRIBUTION WIDTH 13.5 % (11.7-14.4)
[2021-12-11 06:27] LABS: ALANINE AMINOTRANSFERASE 15 IU/L (0-55); ALBUMIN 3.4 g/dL (3.5-5.0); ALKALINE PHOSPHATASE 63 IU/L (40-150); ANION GAP 15.8 mmol/L (8-16); BLOOD UREA NITROGEN < 5 mg/dL (7-26); CARBON DIOXIDE 13 mmol/L (22-29); CHLORIDE 110 mmol/L (98-107); CREATININE, SERUM 0.51 mg/dL (0.57-1.11); EST GLOMERULAR FILTRATION RATE 119 ML/MIN (60-); GLUCOSE 82 mg/dL (74-118); POTASSIUM 3.8 mmol/L (3.5-5.1); SODIUM 135 mmol/L (136-145)
[2021-12-11 06:29] LABS: BUN/CREATININE RATIO 10 (6-25)
[2021-12-11] MEDS: INSULIN LISPRO 100 UNIT/1 ML 3ML VIAL SQ SCH ×4 (07:30→21:00)
[2021-12-11] MEDS: SODIUM CHLORIDE 0.9% 1000ML 1,000 ML IV SCH ×2 (08:54→18:24)
[2021-12-11] MEDS: HYDROMORPHONE 1MG/1ML INJ IV PRN ×3 (12:39→21:00)
[2021-12-12] VITALS (7 sets, daily range): BP systolic 106–148; BP diastolic 60–75
[2021-12-12] MEDS: HYDROMORPHONE 1MG/1ML INJ IV PRN ×3 (00:37→14:44)
[2021-12-12] MEDS: SODIUM CHLORIDE 0.9% 250ML IRRIG IR SCH ×3 (02:00→10:00)
[2021-12-12] MEDS: SODIUM CHLORIDE 0.9% 1000ML 1,000 ML IV SCH (04:00)
[2021-12-12 06:34] LABS: BASOPHILS % 0.3 % (0.0-1.0); EOSINOPHILS # (AUTO) 0.1 (0.0-0.4); EOSINOPHILS % 1.2 % (0.0-6.0); HEMATOCRIT 35.2 % (34.2-44.1); HEMOGLOBIN 11.1 g/dL (12.0-16.0); LYMPHOCYTES # (AUTO) 1.5 (1.0-3.2); LYMPHOCYTES % 15.6 % (18.0-39.1); MEAN CORPUSCULAR HEMOGLOBIN 30.7 pg (28-32); MEAN CORPUSCULAR HGB CONC 31.5 g/dL (31-35); MEAN CORPUSCULAR VOLUME 97.2 fL (81-99); MONOCYTES # (AUTO) 0.9 (0.2-0.8); MONOCYTES % 9.1 % (4.4-11.3); NEUTROPHILS # (AUTO) 7.1 (2.1-6.9); NEUTROPHILS % 73.3 % (38.7-80.0); PLATELET COUNT 284 x10e3/uL (140-360); RED BLOOD COUNT 3.62 x10e6/uL (3.6-5.1); RED CELL DISTRIBUTION WIDTH 13.3 % (11.7-14.4)
[2021-12-12 06:52] LABS: ALANINE AMINOTRANSFERASE 13 IU/L (0-55); ALBUMIN 3.1 g/dL (3.5-5.0); ALBUMIN/GLOBULIN RATIO 0.9 (0.8-2.0); ALKALINE PHOSPHATASE 59 IU/L (40-150); ANION GAP 11.5 mmol/L (8-16); BLOOD UREA NITROGEN < 5 mg/dL (7-26); CALCIUM 8.2 mg/dL (8.4-10.2); CARBON DIOXIDE 16 mmol/L (22-29); CHLORIDE 112 mmol/L (98-107); CREATININE, SERUM 0.52 mg/dL (0.57-1.11); EST GLOMERULAR FILTRATION RATE 116 ML/MIN (60-); GLUCOSE 122 mg/dL (74-118); POTASSIUM 3.5 mmol/L (3.5-5.1); SODIUM 136 mmol/L (136-145)
[2021-12-12 06:56] LABS: BUN/CREATININE RATIO 10 (6-25)
[2021-12-12] MEDS: INSULIN LISPRO 100 UNIT/1 ML 3ML VIAL SQ SCH ×4 (07:30→21:00)
[2021-12-12] MEDS ORDERED: DEXTROSE 50% SYRINGE 50 ML IV STA (07:54)
[2021-12-12] MEDS: LORAZEPAM INJ 2 MG/ML VIAL IV PRN (09:55)
[2021-12-12] MEDS ORDERED: POTASSIUM CHLORIDE 10MEQ EA PO ONE (12:00)
[2021-12-12] MEDS ORDERED: METOPROLOL TARTRATE INJ 1 MG/ML VIAL IV ONE (17:00)
[2021-12-12] MEDS: METOPROLOL SUCCINATE 50 MG TAB XL PO SCH (18:00)
[2021-12-12] MEDS: LORAZEPAM 0.5 MG TAB PO PRN (22:47)
[2021-12-13] VITALS (8 sets, daily range): BP systolic 111–143; BP diastolic 51–87
[2021-12-13 06:46] LABS: BASOPHILS % 0.2 % (0.0-1.0); EOSINOPHILS # (AUTO) 0.1 (0.0-0.4); HEMATOCRIT 32.2 % (34.2-44.1); HEMOGLOBIN 10.8 g/dL (12.0-16.0); LYMPHOCYTES # (AUTO) 1.5 (1.0-3.2); LYMPHOCYTES % 16.2 % (18.0-39.1); MEAN CORPUSCULAR HEMOGLOBIN 30.9 pg (28-32); MEAN CORPUSCULAR HGB CONC 33.5 g/dL (31-35); MEAN CORPUSCULAR VOLUME 92.3 fL (81-99); MONOCYTES # (AUTO) 1.1 (0.2-0.8); MONOCYTES % 12.1 % (4.4-11.3); NEUTROPHILS # (AUTO) 6.4 (2.1-6.9); NEUTROPHILS % 70.1 % (38.7-80.0); PLATELET COUNT 299 x10e3/uL (140-360); RED BLOOD COUNT 3.49 x10e6/uL (3.6-5.1); RED CELL DISTRIBUTION WIDTH 13.1 % (11.7-14.4)
[2021-12-13 07:19] LABS: ANION GAP 12.4 mmol/L (8-16); BLOOD UREA NITROGEN < 5 mg/dL (7-26); CALCIUM 8.8 mg/dL (8.4-10.2); CARBON DIOXIDE 22 mmol/L (22-29); CHLORIDE 104 mmol/L (98-107); CREATININE, SERUM 0.46 mg/dL (0.57-1.11); EST GLOMERULAR FILTRATION RATE 134 ML/MIN (60-); GLUCOSE 151 mg/dL (74-118); POTASSIUM 3.4 mmol/L (3.5-5.1); SODIUM 135 mmol/L (136-145)
[2021-12-13 07:22] LABS: BUN/CREATININE RATIO 11 (6-25)
[2021-12-13] MEDS: INSULIN LISPRO 100 UNIT/1 ML 3ML VIAL SQ SCH ×4 (07:30→21:00)
[2021-12-13] MEDS: HYDROMORPHONE 1MG/1ML INJ IV PRN ×3 (08:10→20:15)
[2021-12-13] MEDS: METOPROLOL SUCCINATE 50 MG TAB XL PO SCH ×3 (08:11→16:45)
[2021-12-13] MEDS: GUAIFENESIN/DEXTROMETHORPHAN LIQD 5 ML UDC PO PRN ×2 (11:57→22:10)
[2021-12-13] MEDS ORDERED: POTASSIUM CHLORIDE 10MEQ EA PO ONE (12:00)
[2021-12-13] MEDS: LORAZEPAM 0.5 MG TAB PO PRN (22:10)
[2021-12-14] VITALS (8 sets, daily range): BP systolic 96–133; BP diastolic 61–75
[2021-12-14] MEDS: GUAIFENESIN/DEXTROMETHORPHAN LIQD 5 ML UDC PO PRN ×2 (04:44→09:44)
[2021-12-14] MEDS: HYDROMORPHONE 1MG/1ML INJ IV PRN ×5 (04:53→20:10)
[2021-12-14 05:40] LABS: BASOPHILS % 0.4 % (0.0-1.0); EOSINOPHILS # (AUTO) 0.4 (0.0-0.4); EOSINOPHILS % 4.6 % (0.0-6.0); HEMOGLOBIN 11.7 g/dL (12.0-16.0); LYMPHOCYTES # (AUTO) 2.1 (1.0-3.2); LYMPHOCYTES % 25.3 % (18.0-39.1); MEAN CORPUSCULAR HEMOGLOBIN 31.3 pg (28-32); MEAN CORPUSCULAR HGB CONC 33.4 g/dL (31-35); MEAN CORPUSCULAR VOLUME 93.6 fL (81-99); MONOCYTES # (AUTO) 0.8 (0.2-0.8); MONOCYTES % 9.5 % (4.4-11.3); NEUTROPHILS # (AUTO) 4.9 (2.1-6.9); PLATELET COUNT 319 x10e3/uL (140-360); RED BLOOD COUNT 3.74 x10e6/uL (3.6-5.1); RED CELL DISTRIBUTION WIDTH 13.5 % (11.7-14.4)
[2021-12-14 06:05] LABS: ALANINE AMINOTRANSFERASE 15 IU/L (0-55); ALBUMIN/GLOBULIN RATIO 0.8 (0.8-2.0); ALKALINE PHOSPHATASE 64 IU/L (40-150); BLOOD UREA NITROGEN < 5 mg/dL (7-26); BUN/CREATININE RATIO 9 (6-25); CALCIUM 9.1 mg/dL (8.4-10.2); CARBON DIOXIDE 26 mmol/L (22-29); CHLORIDE 102 mmol/L (98-107); CREATININE, SERUM 0.56 mg/dL (0.57-1.11); EST GLOMERULAR FILTRATION RATE 106 ML/MIN (60-); GLUCOSE 157 mg/dL (74-118); SODIUM 135 mmol/L (136-145)
[2021-12-14] MEDS: INSULIN LISPRO 100 UNIT/1 ML 3ML VIAL SQ SCH ×4 (07:30→21:00)
[2021-12-14] MEDS: METOPROLOL SUCCINATE 50 MG TAB XL PO SCH ×2 (09:33→17:29)
[2021-12-14] MEDS ORDERED: METOPROLOL SUCC50 MG PO (18:46)
[2021-12-14] MEDS: LORAZEPAM 0.5 MG TAB PO PRN (22:00)
[2021-12-15] VITALS: BP 131/65
[2021-12-15 04:00] VITALS: BP 134/73
[2021-12-15] MEDS: HYDROMORPHONE 1MG/1ML INJ IV PRN (06:10)
[2021-12-15 06:14] LABS: BASOPHILS % 0.3 % (0.0-1.0); EOSINOPHILS # (AUTO) 0.3 (0.0-0.4); EOSINOPHILS % 3.9 % (0.0-6.0); LYMPHOCYTES % 30.3 % (18.0-39.1); MEAN CORPUSCULAR HEMOGLOBIN 31.3 pg (28-32); MEAN CORPUSCULAR HGB CONC 33.3 g/dL (31-35); MEAN CORPUSCULAR VOLUME 93.8 fL (81-99); MONOCYTES # (AUTO) 0.6 (0.2-0.8); MONOCYTES % 9.3 % (4.4-11.3); NEUTROPHILS # (AUTO) 3.7 (2.1-6.9); NEUTROPHILS % 55.7 % (38.7-80.0); PLATELET COUNT 322 x10e3/uL (140-360); RED CELL DISTRIBUTION WIDTH 13.6 % (11.7-14.4)
[2021-12-15 06:30] LABS: ALBUMIN 2.7 g/dL (3.5-5.0); ALBUMIN/GLOBULIN RATIO 0.8 (0.8-2.0); ANION GAP 10.5 mmol/L (8-16); CALCIUM 8.1 mg/dL (8.4-10.2); CREATININE, SERUM 0.54 mg/dL (0.57-1.11); POTASSIUM 3.5 mmol/L (3.5-5.1)
[2021-12-15] MEDS: INSULIN LISPRO 100 UNIT/1 ML 3ML VIAL SQ SCH ×2 (07:30→11:30)
[2021-12-15 07:48] VITALS: BP 114/71
[2021-12-15 08:01] VITALS: BP 114/71
[2021-12-15] MEDS: METOPROLOL SUCCINATE 50 MG TAB XL PO SCH (08:51)
[2021-12-15] MEDS ORDERED: POTASSIUM CHLORIDE 10MEQ EA PO ONE (09:30)
[2021-12-15 11:52] VITALS: BP 119/65
[2021-12-15] MEDS ORDERED: ONDANSETRON HCL 4 MG ORAL DISINTEGRATING TAB PO PRN (12:30)
[2021-12-15] MEDS ORDERED: PANTOPRAZOLE SOD 40 MG TABEC PO SCH (16:00)
== END 2021-12-15 13:44 | disposition home or self-care (01) | DRG 330 ==
LOC: OR 09:26 → PACU V 14:29 → ICU 15:48 → MED/SURG3 12-10 10:07
PROVIDERS: ADMIT Surgery; ATTEND Surgery
PROC: 0DBN0ZZ Excision of Sigmoid Colon, Open Approach (ICD-10-PCS; 2021-12-09)
PROC: 0DBM0ZZ Excision of Descending Colon, Open Approach (ICD-10-PCS; principal; 2021-12-09 11:44)
DX: K57.32 Diverticulitis of large intestine without perforation or abscess without bleeding (principal); E44.0 Moderate protein-calorie malnutrition; K66.0 Peritoneal adhesions (postprocedural) (postinfection); Z88.2 Allergy status to sulfonamides; Z87.440 Personal history of urinary (tract) infections; E11.9 Type 2 diabetes mellitus without complications; E78.5 Hyperlipidemia, unspecified; I11.9 Hypertensive heart disease without heart failure; Z79.84 Long term (current) use of oral hypoglycemic drugs; Z83.3 Family history of diabetes mellitus; F41.9 Anxiety disorder, unspecified; E87.6 Hypokalemia; G47.00 Insomnia, unspecified; Z20.822 Contact with and (suspected) exposure to COVID-19; Z68.20 Body mass index [BMI] 20.0-20.9, adult
CPT/HCPCS: 36415; 71045; 80048; 80053; 82948; 85025; 88307; 93005; 94799; 96361; 97139; C1713; J0694; J1170; J2001; J2060; J2250; J2270; J2405; J3010; J7030; U0002

== ENCOUNTER 2021-12-31 18:11 | Emergency (ER) | payer MEDICARE, OTHER ==
[~2021-12-31] VITALS: Ht 157.5 cm; Wt 49.9 kg
[~2021-12-31 18:11] MED LIST changes: +METOPROLOL SUCC50 MG PO
[2021-12-31] MEDS ORDERED: NAPROSYN500 MG PO (20:20)
== END 2021-12-31 20:41 | disposition home or self-care (01) ==
LOC: FSED 19:13
DX: M54.31 Sciatica, right side (principal); E11.9 Type 2 diabetes mellitus without complications; I10 Essential (primary) hypertension; I25.10 Atherosclerotic heart disease of native coronary artery without angina pectoris; Z79.84 Long term (current) use of oral hypoglycemic drugs; Z79.899 Other long term (current) drug therapy
CPT/HCPCS: 99282

== ENCOUNTER 2022-01-03 12:42 | Emergency (ER) | payer MEDICARE, OTHER ==
[~2022-01-03] VITALS: Ht 157.5 cm; Wt 49.9 kg
[~2022-01-03 12:42] MED LIST changes: +NAPROSYN500 MG PO
[2022-01-03] MEDS ORDERED: NEURONTIN100 MG PO (13:35)
[2022-01-03] MEDS ORDERED: ACETAMINOPHEN 325 MG TAB PO ONE (13:45)
[2022-01-03] MEDS ORDERED: KETOROLAC TROMETHAMINE 30 MG/ML VIAL IM ONE (13:45)
== END 2022-01-03 14:22 | disposition home or self-care (01) ==
LOC: ER 12:50
DX: M54.41 Lumbago with sciatica, right side (principal)
CPT/HCPCS: 99282; J1885

== ENCOUNTER 2022-01-27 16:49 | Emergency (ER) | payer MEDICARE, OTHER ==
[~2022-01-27] VITALS: Ht 157.5 cm; Wt 49.9 kg
[~2022-01-27 16:49] MED LIST changes: +NEURONTIN100 MG PO
[2022-01-27] MEDS ORDERED: IBUPROFEN 600 MG TAB PO STA (16:59)
[2022-01-27] MEDS ORDERED: KETOROLAC TROMETHAMINE 30 MG/ML VIAL IV STA (18:22)
[2022-01-27 18:45] VITALS: BP 146/69
== END 2022-01-27 18:45 | disposition home or self-care (01) ==
LOC: ER 16:53
DX: M25.551 Pain in right hip (principal); M54.31 Sciatica, right side; S70.01XA Contusion of right hip, initial encounter; W22.09XA Striking against other stationary object, initial encounter; I10 Essential (primary) hypertension; E11.9 Type 2 diabetes mellitus without complications
CPT/HCPCS: 72110; 99283; J1885

== ENCOUNTER → 2022-02-02 | Outpatient (CLI) | payer OTHER | LOC: MRI 11:56 | PROVIDERS: ATTEND Internal Medicine | DX: M54.41 Lumbago with sciatica, right side (principal) | CPT/HCPCS: 72148 ==

== ENCOUNTER → 2022-05-28 | Outpatient (CLI) | payer OTHER | LOC: RAD 10:18 | PROVIDERS: ATTEND Internal Medicine | DX: J01.10 Acute frontal sinusitis, unspecified (principal) | CPT/HCPCS: 70220 ==

== ENCOUNTER → 2022-06-08 | Outpatient (CLI) | payer OTHER | LOC: RAD 11:19 | PROVIDERS: ATTEND Internal Medicine | DX: M43.02 Spondylolysis, cervical region (principal); S93.601A Unspecified sprain of right foot, initial encounter | CPT/HCPCS: 72050 ==

== ENCOUNTER 2022-12-01 15:29 | Emergency (ER) | payer MEDICARE, OTHER ==
[~2022-12-01] VITALS: Ht 157.5 cm; Wt 49.9 kg
[2022-12-01] MEDS ORDERED: KETOROLAC TROMETHAMINE 30 MG/ML VIAL IV STA (15:58)
[2022-12-01 16:18] LABS: BASOPHILS % 0.3 % (0.0-1.0); EOSINOPHILS # (AUTO) 0.2 (0.0-0.4); EOSINOPHILS % 1.6 % (0.0-6.0); LYMPHOCYTES # (AUTO) 3.6 (1.0-3.2); LYMPHOCYTES % 31.6 % (18.0-39.1); MEAN CORPUSCULAR HEMOGLOBIN 30.7 pg (28-32); MEAN CORPUSCULAR HGB CONC 33.3 g/dL (31-35); MEAN CORPUSCULAR VOLUME 92.2 fL (81-99); MONOCYTES # (AUTO) 0.7 (0.2-0.8); MONOCYTES % 6.1 % (4.4-11.3); NEUTROPHILS # (AUTO) 6.8 (2.1-6.9); NEUTROPHILS % 60.2 % (38.7-80.0); PLATELET COUNT 290 x10e3/uL (140-360); RED BLOOD COUNT 4.23 x10e6/uL (3.6-5.1); RED CELL DISTRIBUTION WIDTH 12.8 % (11.7-14.4)
[2022-12-01 16:28] LABS: CLARITY,URINE CLEAR (CLEAR); COLOR,URINE YELLOW (YELLOW); KETONES,URINE NEGATIVE (NEGATIVE); LEUKOCYTE ESTERASE ,URINE NEGATIVE (NEGATIVE); NITRITE,URINE NEGATIVE (NEGATIVE); PROTEIN,URINE DIPSTICK NEGATIVE (NEGATIVE); URINE UROBILINOGEN 0.2 mg/dL (0.2 - 1)
[2022-12-01 16:31] LABS: ALBUMIN 4.2 g/dL (3.5-5.0); ALBUMIN/GLOBULIN RATIO 1.2 (0.8-2.0); ANION GAP 16.3 mmol/L (8-16); CALCIUM 9.6 mg/dL (8.4-10.2); CREATININE, SERUM 0.62 mg/dL (0.57-1.11); POTASSIUM 4.3 mmol/L (3.5-5.1)
[2022-12-01] MEDS: ONDANSETRON HCL INJ 2MG/ML 2ML 2 MG/ML VIAL IV PRN ×2 (16:42→17:56)
[2022-12-01] MEDS ORDERED: IOPAMIDOL 370 MG/ML 100 ML INFUS..BTL INJ ONE (16:58)
[2022-12-01] MEDS ORDERED: Morphine 4mg INJECTION 4 MG/ML INJ IV PRN (17:30)
[2022-12-01] MEDS ORDERED: SODIUM CHLORIDE 0.9% 1000ML 1,000 ML IV ONE (17:45)
[2022-12-01] MEDS ORDERED: ONDANSETRON ODT4 MG PO (19:55)
[2022-12-01] MEDS ORDERED: ACETAMINOPHEN-1 EAC4 PEG (19:55)
[2022-12-01 20:05] VITALS: BP 135/69
== END 2022-12-01 20:06 | disposition home or self-care (01) ==
LOC: ER 15:54
DX: R10.32 Left lower quadrant pain (principal); I10 Essential (primary) hypertension; E11.9 Type 2 diabetes mellitus without complications; I25.10 Atherosclerotic heart disease of native coronary artery without angina pectoris; F41.9 Anxiety disorder, unspecified; Z20.822 Contact with and (suspected) exposure to COVID-19; Z87.19 Personal history of other diseases of the digestive system
CPT/HCPCS: 36415; 74177; 80053; 81001; 83605; 83690; 84484; 85025; 87040; 87086; 93005; 99284; J1885; J2270; J2405; J2543; J7030; Q9967; U0002

== ENCOUNTER 2023-01-19 14:32 | Inpatient (IN) | payer MEDICARE, OTHER ==
[~2023-01-19] VITALS: Ht 157.5 cm; Wt 53.5 kg
[2023-01-19] VITALS (13 sets, daily range): BP systolic 137–161; BP diastolic 45–73; PULSE 40–105; RESP 13–22; TEMP 97.6–98.8; O2SAT 96–100
[~2023-01-19 14:32] MED LIST changes: +ACETAMINOPHEN-1 EAC4 PEG
[2023-01-19 15:30] LABS: BASOPHILS % 0.2 % (0.0-1.0); EOSINOPHILS % 0.3 % (0.0-6.0); HEMATOCRIT 35.9 % (34.2-44.1); HEMOGLOBIN 11.9 g/dL (12.0-16.0); LYMPHOCYTES # (AUTO) 1.6 (1.0-3.2); LYMPHOCYTES % 12.5 % (18.0-39.1); MEAN CORPUSCULAR HEMOGLOBIN 30.6 pg (28-32); MEAN CORPUSCULAR HGB CONC 33.1 g/dL (31-35); MEAN CORPUSCULAR VOLUME 92.3 fL (81-99); MONOCYTES # (AUTO) 0.4 (0.2-0.8); MONOCYTES % 2.8 % (4.4-11.3); NEUTROPHILS % 83.8 % (38.7-80.0); PLATELET COUNT 273 x10e3/uL (140-360); RED BLOOD COUNT 3.89 x10e6/uL (3.6-5.1); RED CELL DISTRIBUTION WIDTH 13.6 % (11.7-14.4)
[2023-01-19 15:52] LABS: ALBUMIN 3.7 g/dL (3.5-5.0); CALCIUM 9.1 mg/dL (8.4-10.2); CREATININE, SERUM 0.84 mg/dL (0.57-1.11)
[2023-01-19 16:21] LABS: CLARITY,URINE HAZY (CLEAR); COLOR,URINE YELLOW (YELLOW); KETONES,URINE NEGATIVE (NEGATIVE); LEUKOCYTE ESTERASE ,URINE MODERATE (NEGATIVE); NITRITE,URINE NEGATIVE (NEGATIVE); PROTEIN,URINE DIPSTICK 2+ (NEGATIVE); URINE UROBILINOGEN 0.2 mg/dL (0.2 - 1)
[2023-01-19] MEDS ORDERED: ASPIRIN 81 MG CHEW TAB PO ONE ×2 (16:30)
[2023-01-19 16:32] LABS: BACTERIA,URINE MODERATE /HPF; EPITHELIAL CELLS,URINE FEW /LPF; RBC,URINE 0-5 /HPF (0-5); TRANSITIONAL EPI CELLS,URINE FEW; WBC,URINE (MAN) >50 /HPF (0-5)
[2023-01-19 16:57] LABS: CREATINE KINASE 31 IU/L (29-168)
[2023-01-19] MEDS ORDERED: ZOLPIDEM TARTRATE 5 MG TAB PO PRN (17:00)
[2023-01-19] MEDS ORDERED: DEXTROSE 50% SYRINGE 50 ML IV PRN (17:00)
[2023-01-19] MEDS: INSULIN REGULAR, HUMAN 100 UNIT/1 ML SQ SCH ×2 (20:42→20:46)
[2023-01-20] VITALS (73 sets, daily range): BP systolic 111–173; BP diastolic 47–115; PULSE 37–105; RESP 9–24; TEMP 98–98.5; O2SAT 81–100
[2023-01-20 07:02] LABS: BASOPHILS % 0.2 % (0.0-1.0); EOSINOPHILS # (AUTO) 0.1 (0.0-0.4); EOSINOPHILS % 0.8 % (0.0-6.0); HEMATOCRIT 37.4 % (34.2-44.1); HEMOGLOBIN 12.2 g/dL (12.0-16.0); LYMPHOCYTES # (AUTO) 3.1 (1.0-3.2); LYMPHOCYTES % 24.1 % (18.0-39.1); MEAN CORPUSCULAR HEMOGLOBIN 30.3 pg (28-32); MEAN CORPUSCULAR HGB CONC 32.6 g/dL (31-35); MEAN CORPUSCULAR VOLUME 92.8 fL (81-99); MONOCYTES # (AUTO) 0.9 (0.2-0.8); MONOCYTES % 7.3 % (4.4-11.3); NEUTROPHILS # (AUTO) 8.5 (2.1-6.9); NEUTROPHILS % 67.3 % (38.7-80.0); PLATELET COUNT 240 x10e3/uL (140-360); RED BLOOD COUNT 4.03 x10e6/uL (3.6-5.1); RED CELL DISTRIBUTION WIDTH 13.6 % (11.7-14.4)
[2023-01-20 07:12] LABS: INR 0.97; PROTHROMBIN TIME 13.4 seconds (11.9-14.5)
[2023-01-20 07:13] LABS: PARTIAL THROMBOPLASTIN TIME 31.9 seconds (23.8-35.5)
[2023-01-20 07:25] LABS: ANION GAP 14.9 mmol/L (8-16); CALCIUM 9.1 mg/dL (8.4-10.2); CREATININE, SERUM 0.64 mg/dL (0.57-1.11); POTASSIUM 3.9 mmol/L (3.5-5.1)
[2023-01-20] MEDS: INSULIN REGULAR, HUMAN 100 UNIT/1 ML SQ SCH ×4 (07:30→21:31)
[2023-01-20] MEDS ORDERED: CLINDAMYCIN 600MG / 50ML 50 ML IV PRN (10:00)
[2023-01-20] MEDS ORDERED: ONDANSETRON HCL4 MG PO (14:58)
[2023-01-20] MEDS ORDERED: ROSUVASTATIN CA10 MG PO (14:59)
[2023-01-20] MEDS ORDERED: LEVOCETIRIZINE D5 MG PO (15:01)
[2023-01-20] MEDS ORDERED: AMITRIPTYLINE H10 MG PO (15:03)
[2023-01-20] MEDS ORDERED: DICYCLOMINE HCL20 MG PO (15:04)
[2023-01-20] MEDS ORDERED: TIZANIDINE HCL4 M1 PO (15:05)
[2023-01-20] MEDS ORDERED: DYMISTA NASAL S23 GM INH (15:06)
[2023-01-20] MEDS ORDERED: IMITREX25 MG PO (15:07)
[2023-01-20] MEDS ORDERED: LYRICA50 MG PO (15:08)
[2023-01-21] VITALS (57 sets, daily range): BP systolic 104–186; BP diastolic 50–140; PULSE 40–106; RESP 10–23; TEMP 97.9–98.6; O2SAT 88–100
[2023-01-21] MEDS: INSULIN REGULAR, HUMAN 100 UNIT/1 ML SQ SCH ×4 (07:30→21:07)
[2023-01-21 07:54] LABS: BASOPHILS # (AUTO) 0.1 (0.0-0.1); BASOPHILS % 0.4 % (0.0-1.0); EOSINOPHILS # (AUTO) 0.4 (0.0-0.4); EOSINOPHILS % 2.6 % (0.0-6.0); HEMATOCRIT 36.5 % (34.2-44.1); HEMOGLOBIN 12.1 g/dL (12.0-16.0); LYMPHOCYTES # (AUTO) 3.3 (1.0-3.2); LYMPHOCYTES % 24.1 % (18.0-39.1); MEAN CORPUSCULAR HEMOGLOBIN 30.1 pg (28-32); MEAN CORPUSCULAR HGB CONC 33.2 g/dL (31-35); MEAN CORPUSCULAR VOLUME 90.8 fL (81-99); MONOCYTES # (AUTO) 1.2 (0.2-0.8); MONOCYTES % 8.7 % (4.4-11.3); NEUTROPHILS # (AUTO) 8.6 (2.1-6.9); NEUTROPHILS % 63.9 % (38.7-80.0); PLATELET COUNT 288 x10e3/uL (140-360); RED BLOOD COUNT 4.02 x10e6/uL (3.6-5.1); RED CELL DISTRIBUTION WIDTH 13.7 % (11.7-14.4)
[2023-01-21 08:16] LABS: ANION GAP 13.1 mmol/L (8-16); CALCIUM 8.8 mg/dL (8.4-10.2); CREATININE, SERUM 0.68 mg/dL (0.57-1.11); POTASSIUM 4.1 mmol/L (3.5-5.1)
[2023-01-21] MEDS ORDERED: LIDOCAINE 1% W/EPINEPHRINE 20 ML VIAL ONE ×2 (09:57→10:43)
[2023-01-21] MEDS ORDERED: GENTAMICIN SULFATE 40 MG/ML 2 ML VIAL ONE (09:57)
[2023-01-21] MEDS ORDERED: SODIUM CHLORIDE 0.9% 250ML 250 ML ONE (09:58)
[2023-01-21] MEDS ORDERED: SODIUM CHLORIDE 0.9% 1000ML 3,000 ML ONE (09:58)
[2023-01-21] MEDS ORDERED: LIDOCAINE HCL 1% LOCAL INJ 20 ML VIAL ONE (09:58)
[2023-01-21] MEDS ORDERED: Vancomycin IV 1 GM VIAL ONE (09:58)
[2023-01-21] MEDS ORDERED: FENTANYL CITRATE/PF 100MCG/2 ML INJ ONE (10:39)
[2023-01-21] MEDS ORDERED: MIDAZOLAM HCL 2 MG/2 ML VIAL ONE (10:39)
[2023-01-21] MEDS: HYDROCODONE/APAP 5MG-325MG TAB PO PRN ×3 (14:01→22:35)
[2023-01-21] MEDS: NICARDIPINE 20MG/200ML PREMIX 200 ML IV SCH (23:17)
[2023-01-22] VITALS (81 sets, daily range): BP systolic 106–170; BP diastolic 56–115; PULSE 67–97; RESP 9–27; TEMP 97.9–98.1; O2SAT 93–100
[2023-01-22] MEDS: HYDROCODONE/APAP 5MG-325MG TAB PO PRN ×5 (02:46→20:13)
[2023-01-22] MEDS: ACETAMINOPHEN 325 MG TAB PO PRN (03:53)
[2023-01-22 06:35] LABS: BASOPHILS % 0.2 % (0.0-1.0); EOSINOPHILS # (AUTO) 0.3 (0.0-0.4); EOSINOPHILS % 2.7 % (0.0-6.0); HEMATOCRIT 39.3 % (34.2-44.1); HEMOGLOBIN 12.9 g/dL (12.0-16.0); LYMPHOCYTES # (AUTO) 2.3 (1.0-3.2); LYMPHOCYTES % 18.9 % (18.0-39.1); MEAN CORPUSCULAR HEMOGLOBIN 30.1 pg (28-32); MEAN CORPUSCULAR HGB CONC 32.8 g/dL (31-35); MEAN CORPUSCULAR VOLUME 91.8 fL (81-99); MONOCYTES # (AUTO) 0.9 (0.2-0.8); MONOCYTES % 7.7 % (4.4-11.3); NEUTROPHILS # (AUTO) 8.4 (2.1-6.9); NEUTROPHILS % 70.2 % (38.7-80.0); PLATELET COUNT 289 x10e3/uL (140-360); RED BLOOD COUNT 4.28 x10e6/uL (3.6-5.1); RED CELL DISTRIBUTION WIDTH 13.3 % (11.7-14.4)
[2023-01-22 06:53] LABS: ANION GAP 14.2 mmol/L (8-16); CALCIUM 8.9 mg/dL (8.4-10.2); CREATININE, SERUM 0.67 mg/dL (0.57-1.11); POTASSIUM 4.2 mmol/L (3.5-5.1)
[2023-01-22] MEDS: ONDANSETRON HCL INJ 2MG/ML 2ML 2 MG/ML VIAL IV PRN ×3 (08:09→20:14)
[2023-01-22] MEDS: LOSARTAN POTASSIUM 100 MG TAB PO SCH (09:50)
[2023-01-22] MEDS: INSULIN REGULAR, HUMAN 100 UNIT/1 ML SQ SCH ×4 (09:50→20:17)
[2023-01-22] MEDS ORDERED: METOPROLOL SUCCINATE 50 MG TAB XL PO SCH (11:30)
[2023-01-22] MEDS ORDERED: NICARDIPINE HCL SOLN 25 MG in SODIUM CHLORIDE 0.9% 250ML 240 ML IV PRN (17:00)
[2023-01-22] MEDS: CRESTOR 10MG PO SCH (20:12)
[2023-01-22] MEDS: METOPROLOL TARTRATE 50 MG TAB PO SCH (20:13)
[2023-01-22] MEDS: MINOCYCLINE HCL 50 MG CAP PO SCH (20:13)
[2023-01-22] MEDS: NICARDIPINE 20MG/200ML PREMIX 200 ML IV SCH (21:09)
[2023-01-23] VITALS (40 sets, daily range): BP systolic 84–160; BP diastolic 48–75; PULSE 65–100; RESP 10–24; TEMP 97.8–98.3; O2SAT 94–100
[2023-01-23] MEDS: ONDANSETRON HCL INJ 2MG/ML 2ML 2 MG/ML VIAL IV PRN ×3 (02:04→21:05)
[2023-01-23] MEDS: HYDROCODONE/APAP 5MG-325MG TAB PO PRN ×5 (02:05→21:04)
[2023-01-23 06:25] LABS: BASOPHILS % 0.2 % (0.0-1.0); EOSINOPHILS # (AUTO) 0.3 (0.0-0.4); EOSINOPHILS % 2.1 % (0.0-6.0); HEMATOCRIT 40.9 % (34.2-44.1); HEMOGLOBIN 13.4 g/dL (12.0-16.0); LYMPHOCYTES # (AUTO) 3.2 (1.0-3.2); LYMPHOCYTES % 23.4 % (18.0-39.1); MEAN CORPUSCULAR HGB CONC 32.8 g/dL (31-35); MEAN CORPUSCULAR VOLUME 91.5 fL (81-99); MONOCYTES # (AUTO) 1.2 (0.2-0.8); MONOCYTES % 8.7 % (4.4-11.3); NEUTROPHILS % 65.3 % (38.7-80.0); PLATELET COUNT 264 x10e3/uL (140-360); RED BLOOD COUNT 4.47 x10e6/uL (3.6-5.1); RED CELL DISTRIBUTION WIDTH 13.2 % (11.7-14.4)
[2023-01-23 06:41] LABS: ANION GAP 13.4 mmol/L (8-16); CREATININE, SERUM 0.68 mg/dL (0.57-1.11); POTASSIUM 4.4 mmol/L (3.5-5.1)
[2023-01-23] MEDS: INSULIN REGULAR, HUMAN 100 UNIT/1 ML SQ SCH ×4 (07:30→21:12)
[2023-01-23] MEDS: METOPROLOL TARTRATE 50 MG TAB PO SCH ×2 (09:00→16:39)
[2023-01-23] MEDS ORDERED: MAGNESIUM HYDROXIDE 30 ML UDC PO ONE (09:00)
[2023-01-23] MEDS: MINOCYCLINE HCL 50 MG CAP PO SCH ×2 (09:42→21:05)
[2023-01-23] MEDS: LOSARTAN POTASSIUM 100 MG TAB PO SCH (09:44)
[2023-01-23] MEDS ORDERED: POLYETHYLENE GLYCOL 3350 17 GM PACK PO PRN (17:00)
[2023-01-23] MEDS: LORATADINE 10 MG TAB PO SCH (17:37)
[2023-01-23] MEDS: AMOXICILLIN/CLAVULANATE K 875 MG TAB PO SCH ×2 (17:38→21:04)
[2023-01-23] MEDS: FLUTICASONE PROPIONATE NASAL SPRAY NS SCH (17:38)
[2023-01-23] MEDS: CRESTOR 10MG PO SCH (21:04)
[2023-01-23] MEDS: NICARDIPINE 20MG/200ML PREMIX 200 ML IV SCH (22:04)
[2023-01-24] MEDS: HYDROCODONE/APAP 5MG-325MG TAB PO PRN ×2 (00:57→07:26)
[2023-01-24 03:00] VITALS: BP 119/61; PULSE 80; RESP 10; TEMP 97.8; O2SAT 98
[2023-01-24 07:00] VITALS: BP 129/65; PULSE 82; RESP 12; O2SAT 98
[2023-01-24 07:15] VITALS: PULSE 85; RESP 14; TEMP 97.6; O2SAT 97
[2023-01-24] MEDS: INSULIN REGULAR, HUMAN 100 UNIT/1 ML SQ SCH ×3 (07:28→17:46)
[2023-01-24 07:34] VITALS: PULSE 97; RESP 16; O2SAT 99
[2023-01-24] MEDS: LORATADINE 10 MG TAB PO SCH (07:47)
[2023-01-24] MEDS: AMOXICILLIN/CLAVULANATE K 875 MG TAB PO SCH (07:47)
[2023-01-24] MEDS: MINOCYCLINE HCL 50 MG CAP PO SCH (07:47)
[2023-01-24] MEDS: METOPROLOL TARTRATE 50 MG TAB PO SCH ×2 (07:47→17:44)
[2023-01-24] MEDS: FLUTICASONE PROPIONATE NASAL SPRAY NS SCH (07:58)
[2023-01-24] MEDS ORDERED: LOSARTAN POTASSIUM 25 MG TAB PO SCH (09:00)
[2023-01-24] MEDS: ACETAMINOPHEN 325 MG TAB PO PRN (14:47)
[2023-01-24 16:34] VITALS: BP 105/65; PULSE 84; RESP 19; TEMP 99; O2SAT 98
[2023-01-24 17:19] LABS: ALBUMIN 3.4 g/dL (3.5-5.0); ALBUMIN/GLOBULIN RATIO 0.9 (0.8-2.0); ANION GAP 14.3 mmol/L (8-16); CALCIUM 8.9 mg/dL (8.4-10.2); CREATININE, SERUM 0.72 mg/dL (0.57-1.11); POTASSIUM 4.3 mmol/L (3.5-5.1)
== END 2023-01-24 19:40 | disposition home or self-care (01) | DRG 244 ==
LOC: ER 14:35 → ERHOLD 16:25 → ICU 18:28 → MED/SURG3 01-24 08:40
PROVIDERS: ADMIT Internal Medicine; ATTEND Internal Medicine
PROC: 0JH606Z Insertion of Pacemaker, Dual Chamber into Chest Subcutaneous Tissue and Fascia, Open Approach (ICD-10-PCS; principal; 2023-01-20)
PROC: 02H63JZ Insertion of Pacemaker Lead into Right Atrium, Percutaneous Approach (ICD-10-PCS; 2023-01-20)
PROC: 02HK3JZ Insertion of Pacemaker Lead into Right Ventricle, Percutaneous Approach (ICD-10-PCS; 2023-01-20)
DX: I44.1 Atrioventricular block, second degree (principal); R11.2 Nausea with vomiting, unspecified; I10 Essential (primary) hypertension; E11.9 Type 2 diabetes mellitus without complications; G89.29 Other chronic pain; J44.9 Chronic obstructive pulmonary disease, unspecified; M54.30 Sciatica, unspecified side; I25.10 Atherosclerotic heart disease of native coronary artery without angina pectoris; E78.00 Pure hypercholesterolemia, unspecified; F41.9 Anxiety disorder, unspecified; Z87.440 Personal history of urinary (tract) infections; Z79.84 Long term (current) use of oral hypoglycemic drugs; Z88.2 Allergy status to sulfonamides; Z20.822 Contact with and (suspected) exposure to COVID-19
CPT/HCPCS: 0223U; 33208; 36415; 71045; 80048; 80053; 81001; 82550; 82948; 83036; 83880; 84443; 84484; 85025; 85610; 85730; 87086; 93005; 93306; 94799; 96372; 99152; 99153; 99284; C1769; C1785; C1898; J1580; J2001; J2250; J2405; J7030; J7050